=== PATIENT | male | born 1990 | race Caucasian/White ===

== ENCOUNTER 2016-08-06 13:42 | Emergency (ER) | payer OTHER ==
[~2016-08-06] VITALS: Ht 172.7 cm; Wt 72.6 kg
[2016-08-06 13:55] VITALS: BP 149/78
[2016-08-06] MEDS ORDERED: IBUPROFEN 400 MG TABLET ONE (14:12)
[2016-08-06] MEDS ORDERED: IBUPROFEN 400 MG TABLET PO ONE (14:30)
== END 2016-08-06 14:20 | disposition home or self-care (01) ==
LOC: ER 13:45
DX: J06.9 Acute upper respiratory infection, unspecified (principal); Z90.89 Acquired absence of other organs
CPT/HCPCS: 99283; A4606; Z7610

== ENCOUNTER 2017-02-16 21:55 | Emergency (ER) | payer OTHER ==
[~2017-02-16] VITALS: Ht 172.7 cm; Wt 74.8 kg
[2017-02-16 22:12] VITALS: BP 141/86
[2017-02-16] MEDS ORDERED: ACETAMINOPHEN ES 500 MG TABLET ONE (22:30)
[2017-02-16] MEDS ORDERED: IBUPROFEN 600 MG TABLET PO ONE ×2 (22:30→22:31)
[2017-02-16] MEDS ORDERED: ACETAMINOPHEN 325 MG TABLET PO ONE (22:30)
--- NOTE | 2017-02-16 22:33 | NUR ---
PT REC'D MEDICATION AND LEFT FOR RADIOLOGY.
--- NOTE | 2017-02-16 23:49 | NUR ---
ORAL TEMP 99.1
== END 2017-02-16 23:50 | disposition home or self-care (01) ==
LOC: ER 22:02
DX: J06.9 Acute upper respiratory infection, unspecified (principal); B34.9 Viral infection, unspecified; Z90.89 Acquired absence of other organs
CPT/HCPCS: 71010; 87804 ×2; 99285; A4606; Z7610; 87400

== ENCOUNTER 2018-04-04 12:40 | Emergency (ER) | payer OTHER ==
[~2018-04-04] VITALS: Ht 172.7 cm; Wt 72.6 kg
--- NOTE | 2018-04-04 12:57 | NUR ---
SEEN AND EXAMINED BY ROXANE MARTINEZ NP. LABS DRAWNED AND SENT TO LAB.
[2018-04-04] MEDS ORDERED: ONDANSETRON HCL/PF 4 MG/2 ML VIAL ONE (13:17)
[2018-04-04] MEDS ORDERED: ONDANSETRON HCL/PF 4 MG/2 ML VIAL IVP ONE (13:30)
[2018-04-04] MEDS ORDERED: IV NS 0.9% 1,000 ML BAG IV ONE (13:30)
[2018-04-04 13:32] LABS: BASOPHILS % (AUTO) 0.3 % (0.0-2.0); EOSINOPHILS % (AUTO) 1.2 % (0.0-6.0); HEMATOCRIT 45 % (39-51); HEMOGLOBIN 15.5 g/dL (13.5-17.5); LYMPHOCYTES # (AUTO) 1.3 /CMM (0.8-4.8); LYMPHOCYTES % (AUTO) 11.3 % (20.0-44.0); MEAN CORPUSCULAR HGB CONC 34 g/dl (31.0-36.0); MEAN CORPUSCULAR VOLUME 92 fL (80-96); MONOCYTES # (AUTO) 0.5 /CMM (0.1-1.30); MONOCYTES % (AUTO) 4.4 % (2.0-12.0); NEUTROPHILS # (AUTO) 9.2 /CMM (1.8-8.9); NEUTROPHILS % (AUTO) 82.8 % (43.0-81.0); PLATELET COUNT (AUTO) 232 /CMM (150-450); RED BLOOD CELL COUNT(AUTO) 4.89 MIL/uL (4.5-6.0); WHITE BLOOD COUNT (AUTO) 11.1 K/uL (4.3-11.0)
[2018-04-04 13:38] LABS: CALCIUM, SERUM 9.1 mg/dL (8.5-10.1); CREATININE 0.9 mg/dL (0.6-1.3); POTASSIUM 3.7 mmol/L (3.5-5.1)
[2018-04-04 13:55] VITALS: BP 126/71
--- NOTE | 2018-04-04 14:18 | NUR ---
IV removed. Catheter intact and site benign. Pressure and 4x4 applied to site. No bleeding noted.Patient discharged to home in stable condition. Written and verbal after care instructions given. Patient verbalizes understanding of instruction.
== END 2018-04-04 14:35 | disposition home or self-care (01) ==
LOC: ER 12:40
DX: R11.2 Nausea with vomiting, unspecified (principal); Z90.89 Acquired absence of other organs
CPT/HCPCS: 36415; 80048-TC; 85025-TC; J2405; J7030